=== PATIENT | male | born 1965 | race Caucasian/White ===

== ENCOUNTER 2017-07-13 07:12 | Day surgery (SDC) | payer BC ==
[2017-07-13] MEDS ORDERED: Lactated Ringers 1,000 ML IV SCH (07:30)
[2017-07-13] MEDS ORDERED: Sodium Chloride 0.9% 10 ML Syringe FLUSH PRN (07:30)
[2017-07-13] MEDS ORDERED: Midazolam 1 MG/ML 2 ML SDV IV ONE (08:45)
[2017-07-13] MEDS ORDERED: Propofol 200 MG/20 ML SDV IV ONE (08:45)
[2017-07-13] MEDS ORDERED: fentaNYL 100 MCG/2 ML SDV IV ONE (08:45)
--- NOTE | 2017-07-13 09:35 | PCM.OPNOTE ---
- General Post-Op/Procedure Note Date of Surgery/Procedure: 07/13/17 Operative Procedure(s): c scope Findings: normal colon Pre Op Diagnosis: screening Post-Op Diagnosis: normal exam Primary Surgeon: Andre Pillai Anesthesia Provider: Zac Yi Pathology: none Complications: None Condition: Good
[2017-07-13] MEDS ORDERED: Metoclopramide 10 MG/2 ML SDV IVPUSH ONE (10:33)
--- NOTE | 2017-07-13 10:39 | OR ---
DATE OF OPERATION: 07/13/2017 SURGEON: Andre Pillai MD PROCEDURE PERFORMED: Colonoscopy. PREOPERATIVE DIAGNOSIS: Need for screening C scope. POSTOPERATIVE DIAGNOSIS: Normal colon. INDICATIONS FOR PROCEDURE: This is a 52-year-old white male, who presents for a screening colonoscopy. He was offered and accepted same. DESCRIPTION OF PROCEDURE: After an excellent IV sedation was administered, digital rectal exam was performed. No marked abnormality was noted. Flexible colonoscope was inserted and advanced without difficulty to the cecum. The prep was good. We had to irrigate a fair amount of liquid stool, but we did get an adequate view of the colonic mucosa. The following findings were noted. Ascending colon, unremarkable. Transverse colon, unremarkable. Descending colon, unremarkable. Sigmoid and rectum, unremarkable. Colon was deflated as the scope was removed. The patient tolerated the procedure well, was taken to recovery room in good condition. /[id number] /MODL
== END 2017-07-13 11:09 | disposition home or self-care (01) ==
LOC: FB.SDS 07:12
PROVIDERS: ATTEND Surgery
DX: Z12.11 Encounter for screening for malignant neoplasm of colon (principal); B20 Human immunodeficiency virus [HIV] disease; Z87.891 Personal history of nicotine dependence; Z79.899 Other long term (current) drug therapy; Z88.8 Allergy status to other drugs, medicaments and biological substances
CPT/HCPCS: 45378; J2250; J2704; J2765; J3010; J7120